=== PATIENT | male | born 1975 | race Caucasian/White ===

== ENCOUNTER 2016-07-07 06:14 | Emergency (ER) | payer BC ==
[~2016-07-07] VITALS: Ht 185.4 cm; Wt 86.1 kg
[~2016-07-07 06:14] MED LIST: IBUP-1050 PO; TRMCR130WC TOP
[2016-07-07 06:18] VITALS: TEMP 36.8; Ht 185.4 cm; Wt 86.1 kg
[2016-07-07] MEDS ORDERED: SODIUM CHLORIDE 0.9% 1000ML 1,000 ML IV STA (06:42)
[2016-07-07 06:57] LABS: BASO % 0.4 %; BASO ABS # 0.02 K/uL (0-0.2); COMPLETE YES; HEMATOCRIT 46.8 % (42-52); IG% 0.2 %; LYMPH % 29.2 %; LYMPH ABS # 1.47 K/uL (1.2-3.4); MEAN CELL VOLUME 85.1 fL (80-100); MEAN CORPUSCULAR HEMOGLOBIN 29.8 pg (25-34); MEAN PLATELET VOLUME 9.5 fL (7.4-10.4); MONO % 4.8 %; NEUT % 62.4 %; PLATELET COUNT 202 K/uL (130-400); WHITE BLOOD COUNT 5.04 K/uL (4.8-10.8)
[2016-07-07] MEDS ORDERED: MECLIZINE HCL 25 MG TAB PO STA (06:58)
[2016-07-07 07:04] LABS: BUN/CREATININE RATIO 14.2 (10-20); CALCIUM 8.8 mg/dl (8.5-10.1); CREATININE 1.1 mg/dl (0.60-1.40)
--- NOTE | 2016-07-07 07:39 | DIAGNOSTIC IMAGING REPORT ---
CT OF THE HEAD WITHOUT CONTRAST CLINICAL HISTORY: Dizziness. COMPARISON STUDY: No previous studies for comparison. CT DOSE: 614.27 mGy.cm TECHNIQUE: Helical axial images of the head were obtained without IV contrast. Automated exposure control was utilized for the study. FINDINGS: No acute intracranial hemorrhage, midline shift or mass effect is present. Ventricular system is normal. The basilar cisterns are patent. No extra-axial collections are present. 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 There are no findings to suggest acute dural sinus thrombosis or acute territorial infarct. There is no significant calvarial abnormality. Visualized portions of the sinuses and mastoid air cells are clear. IMPRESSION: No acute intracranial findings. Electronically signed by: Vinicius Sumner M.D. 07/07/2016 7:38 AM Dictated Date/Time: 07/07/2016 7:32 AM
[2016-07-07 07:51] LABS: URINE APPEARANCE CLEAR (CLEAR); URINE BILIRUBIN NEG (NEG); URINE COLOR YELLOW; URINE NITRITE NEG (NEG); URINE PH 6.5 (4.5-7.5); URINE SPECIFIC GRAVITY 1.011 (1.000-1.030); UROBILINOGEN NEG (NEG); ZZUR CULT IF INDIC CLEAN CATCH NO
[2016-07-07 07:53] LABS: MANUAL MICROSCOPIC REQUIRED? NO; REVIEW REQ? NO
[2016-07-07] MEDS ORDERED: MECL1TAB42 PO (08:58)
[2016-07-07 09:05] VITALS: BP 117/64; PULSE 61; O2SAT 96
--- NOTE | 2016-07-07 15:11 | EMERGENCY ROOM VISIT NOTE ---
History Report prepared by Abner: Ted Damon Under the Supervision of: Dr. Joey Corrigan M.D. First contact with patient: 06:41 Chief Complaint: DIZZY Stated Complaint: DIZZY SPELLS, COLD SWEATS Nursing Triage Summary: Patient c/o dizziness that began this morning. States, "I was fine when I went to bed. I actually fell down a few times." Denies any LOC. History of Present Illness The patient is a 40 year old male who presents to the Emergency Room with complaints of intermittent dizziness since 299 this morning. The patient woke up to the room spinning and cold sweats. The dizziness seems to be exacerbated by postural changes, including standing up and bending over to tie his shoes. At one point the patient fell over when he tried to stand up. The patient has never has these symptoms before. The patient also notes that his tongue has been numb on both sides recently. He denies any one-sided weakness or numbness. He also denies LOC, headache, fevers, chills, diaphoresis, visual changes, neck pain, chest pain, breathing difficulties, nausea, vomiting, abdominal pain, back pain, melena, hematochezia, urinary symptoms, lymphadenopathy, rash, or other complaints. The patient denies having any recent cold symptoms. The patient has not traveled recently. He sees a chiropractor once per month. He denies any medical problems and does not take any daily medications. Source of History: patient Onset: 299 morning Position: other (global) Quality: other (dizziness) Timing: intermittent Modifying Factors (Worsening): other (postural changes) Associated Symptoms: + numbness (tongue, bilateral) Review of Systems See HPI for pertinent positives and negatives. A total of ten systems were reviewed and were otherwise negative. Past Medical & Surgical Medical Problems: (1) Otitis externa Surgical Problems: (1) H/O vasectomy (2) Hx of tonsillectomy (3) [place] teeth extracted Family History Cancer Social History Smoking Status: Never Smoker Alcohol Use: occasionally Marital Status: Housing Status: lives with significant other Occupation Status: employed Current/Historical Medications Scheduled PRN Meclizine Hcl (Meclizine Hcl), 25 MG PO TID PRN for Dizziness Allergies Coded Allergies: Cephalexin (Verified Adverse Reaction, Unknown, nausea, 08/06/15) Physical Exam Vital Signs Date Time Temp Pulse Resp B/P Pulse Ox O2 Delivery O2 Flow Rate FiO2 07/07/16 09:05 61 24 117/64 96 07/07/16 08:00 60 18 140/98 98 Room Air 07/07/16 07:02 66 07/07/16 06:50 62 106/67 100 Room Air 64 112/71 72 127/75 07/07/16 06:18 36.8 59 18 132/69 98 Room Air Physical Exam GENERAL: Awake, alert, well appearing, no distress HENT: Normocephalic, atraumatic. TM's normal. Oropharynx unremarkable. EYES: PERRL. EOMI. Normal conjunctiva. Sclera non-icteric. NECK: Supple. No nuchal rigidity. FROM. No JVD or bruit. RESPIRATORY: CTA CARDIAC: RRR. No murmur. ABDOMEN: Soft, non distended. No tenderness to palpation. No rebound or guarding. No masses. RECTAL: Deferred. MUSCULOSKELETAL: Unremarkable. No edema. No discoloration. Gross motor strength symmetric. NEURO: Cranial nerves 2-12 grossly intact. Normal sensorium. No sensory or motor deficits noted. Gait normal. Speech normal. No pronator drift. Negative rhomberg. Lateral nystagmus. Normal rapid alternating movements. Positive Beau[place]-Hallpike. SKIN: No rash or jaundice noted. LYMPH: No adenopathy. Medical Decision & Procedures ER Provider Diagnostic Interpretation: CT results as stated below per my review and radiologist interpretation CT OF THE HEAD WITHOUT CONTRAST CLINICAL HISTORY: Dizziness. COMPARISON STUDY: No previous studies for comparison. CT DOSE: 614.27 mGy.cm TECHNIQUE: Helical axial images of the head were obtained without IV contrast. Automated exposure control was utilized for the study. FINDINGS: No acute intracranial hemorrhage, midline shift or mass effect is present. Ventricular system is normal. The basilar cisterns are patent. No extra-axial collections are present. 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 There are no findings to suggest acute dural sinus thrombosis or acute territorial infarct. There is no significant calvarial abnormality. Visualized portions of the sinuses and mastoid air cells are clear. IMPRESSION: No acute intracranial findings. Electronically signed by: Vinicius Sumner M.D. 07/07/2016 7:38 AM Laboratory Results 07/07/16 06:36 Red Blood Count 5.50, Mean Corpuscular Volume 85.1, Mean Corpuscular Hemoglobin 29.8, Mean Corpuscular Hemoglobin Concent 35.0, Mean Platelet Volume 9.5, Neutrophils (%) (Auto) 62.4, Lymphocytes (%) (Auto) 29.2, Monocytes (%) (Auto) 4.8, Eosinophils (%) (Auto) 3.0, Basophils (%) (Auto) 0.4, Neutrophils # (Auto) 3.15, Lymphocytes # (Auto) 1.47, Monocytes # (Auto) 0.24, Eosinophils # (Auto) 0.15, Basophils # (Auto) 0.02 07/07/16 06:36 Test 07/07/16 06:36 07/07/16 07:35 White Blood Count 5.04 K/uL (4.8-10.8) Red Blood Count 5.50 M/uL (4.7-6.1) Hemoglobin 16.4 g/dL (14.0-18.0) Hematocrit 46.8 % (42-52) Mean Corpuscular Volume 85.1 fL (80-100) Mean Corpuscular Hemoglobin 29.8 pg (25-34) Mean Corpuscular Hemoglobin Concent 35.0 g/dl (32-36) Platelet Count 202 K/uL (130-400) Mean Platelet Volume 9.5 fL (7.4-10.4) Neutrophils (%) (Auto) 62.4 % Lymphocytes (%) (Auto) 29.2 % Monocytes (%) (Auto) 4.8 % Eosinophils (%) (Auto) 3.0 % Basophils (%) (Auto) 0.4 % Neutrophils # (Auto) 3.15 K/uL (1.4-6.5) Lymphocytes # (Auto) 1.47 K/uL (1.2-3.4) Monocytes # (Auto) 0.24 K/uL (0.11-0.59) Eosinophils # (Auto) 0.15 K/uL (0-0.5) Basophils # (Auto) 0.02 K/uL (0-0.2) RDW Standard Deviation 39.5 fL (36.4-46.3) RDW Coefficient of Variation 12.8 % (11.5-14.5) Immature Granulocyte % (Auto) 0.2 % Immature Granulocyte # (Auto) 0.01 K/uL (0.00-0.02) Anion Gap 8.0 mmol/L (3-11) Est Creatinine Clear Calc Drug Dose 98.8 ml/min Estimated GFR () 95.5 Estimated GFR (Non- 82.4 BUN/Creatinine Ratio 14.2 (10-20) Calcium Level 8.8 mg/dl (8.5-10.1) Total Bilirubin 0.5 mg/dl (0.2-1) Direct Bilirubin 0.1 mg/dl (0-0.2) Aspartate Amino Transf (AST/SGOT) 26 U/L (15-37) Alanine Aminotransferase (ALT/SGPT) 33 U/L (12-78) Alkaline Phosphatase 78 U/L (45-117) Total Protein 7.6 gm/dl (6.4-8.2) Albumin 4.1 gm/dl (3.4-5.0) Lipase 141 U/L (73-393) Urine Color YELLOW Urine Appearance CLEAR (CLEAR) Urine pH 6.5 (4.5-7.5) Urine Specific [place] 1.011 (1.000-1.030) Urine Protein NEG (NEG) Urine Glucose (UA) NEG (NEG) Urine Ketones NEG (NEG) Urine Occult Blood NEG (NEG) Urine Nitrite NEG (NEG) Urine Bilirubin NEG (NEG) Urine Urobilinogen NEG (NEG) Urine Leukocyte Esterase NEG (NEG) Laboratory results reviewed by me Medications Administered Medications (Trade) Dose Ordered Sig/Gabino Route Start Time Stop Time Status Last Admin Dose Admin Sodium Chloride (Nss 1000ml) 1,000 ml @ 125 mls/hr Q8H STAT IV 07/07/16 06:42 07/07/16 10:41 DC 07/07/16 07:07 125 MLS/HR Meclizine HCl (Antivert Tab) 25 mg NOW STAT PO 07/07/16 06:58 07/07/16 07:01 DC 07/07/16 07:09 25 MG ECG Indication: other (dizziness) Rate (beats per minute): 80 Rhythm: normal sinus Findings: no acute ischemic change, no ectopy ED Course 0642: NSS 1000 ml @ 125 mls/hr. 0652: The patient was evaluated in room A9b. A complete history and physical exam was performed. 0658: Meclizine 25 mg PO. 0855: Reassessed the patient. Discussed the findings with him. He verbalized understanding and agreement of the treatment plan. The patient is ready for discharge. Medical Decision Prior records/ancillary studies reviewed. Triage Nursing notes reviewed and agree them. The patient's history was concerning for dizziness. Differential diagnosis: Etiologies such as benign positional vertigo, tumor, infection, hypoglycemia, electrolyte abnormalities, cardiac sources, intracerebral event, toxicologic, neurologic, as well as others were entertained. Physical examination: As above. No pathologic nystagmus. Negative HINTS exam. Positive Hallpike. ER treatment provided: IV hydration over one hour Meclizine On reassessment the patient felt well. His symptoms are essentially resolved. Diagnostics interpretation by me: ECG: Normal sinus rhythm without ischemic change or evidence of dysrhythmia. The labs revealed a normal CBC and chemistry panel. Imaging studies: CT scan as above It appears the patient had an episode of benign -positional vertigo. By the evaluation outlined above emergent etiologies such as infection, hypoglycemia, electrolyte abnormalities, cardiac sources, intracerebral event, toxicologic, neurologic,as well as others were deemed relatively unlikely. The patient and were informed about the findings as listed above. All questions were answered and they were pleased with the treatment. Return instructions were outlined and the patient was discharged in stable condition. Outpatient prescription management: Meclizine Referral: The patient was referred back to his primary care physician for follow-up in 2 to 3 days for a recheck of the current condition. The chart was completed utilizing [employer] Speech voice recognition software. Grammatical errors, random word insertions, pronoun errors, and incomplete sentences are an occasional consequence of this system due to software limitations, ambient noise, and hardware issues. Any formal questions or concerns about the content, text, or information contained within the body of this dictation should be directly addressed to the physician for clarification. Impression Primary Impression: Dizziness Additional Impression: Vertigo Scribe Attestation The scribe's documentation has been prepared under my direction and personally reviewed by me in its entirety. I confirm that the note above accurately reflects all work, treatment, procedures, and medical decision making performed by me. Departure Information Dispostion Home / Self-Care Prescriptions Meclizine Hcl (MECLIZINE HCL) 25 Mg Tab 25 MG PO TID Y for Dizziness, #21 TAB Prov: Joey Corrigan MD 07/07/16 Referrals Roberto Hendrix M.D. (PCP) Forms HOME CARE DOCUMENTATION FORM, IMPORTANT VISIT INFORMATION Patient Instructions My [facility] Additional Instructions DIZZINESS INSTRUCTIONS: DO NOT drive, drink alcohol, operate machinery, or perform dangerous activities today. You were given medications in the ER that can affect your ability to safely function or operate a vehicle. You should not drive or perform any dangerous activities until your symptoms resolve. Meclizine 25mg: Take 1 pill every 8 hours as needed for dizziness or vertigo. Avoid alcohol, operating machinery or dangerous equipment, working on ladders or roofs, DRIVING, or situations where being under the influence may be dangerous Rest and drink plenty of fluids as tolerated. Continue current medications. Return to the ER immediately for worsening or persistent dizziness, vomiting, headache, fevers, chest pains, difficulty breathing, black or bloody stools, slurred speech, numbness, weakness, visual changes, worsening of your condition , or as needed. Follow up with your primary physician in 2-3 days for a recheck of your current condition. Problem Qualifiers
== END 2016-07-07 09:05 | disposition home or self-care (01) ==
LOC: C.EDB 06:14 → C.EDA 09:05
DX: R42 Dizziness and giddiness (principal); Z98.52 Vasectomy status; Z90.89 Acquired absence of other organs; Z98.818 Other dental procedure status; Z80.9 Family history of malignant neoplasm, unspecified

== ENCOUNTER → 2017-03-21 | Outpatient (CLI) | payer BC ==
[2017-03-21 13:14] LABS: CHOLESTEROL/HDL RATIO 2.8; PROSTATE SPECIFIC ANTIGEN 1.35 ng/ml (0.000-4.000); THYROID STIMULATING HORMONE 0.926 uIu/ml (0.300-4.500)
== END | disposition home or self-care (01) ==
LOC: C.LABPBG 08:22
PROVIDERS: ATTEND Neuromusculoskeletal Medicine & OMM
DX: Z00.00 Encounter for general adult medical examination without abnormal findings (principal)

== ENCOUNTER → 2017-06-30 | Outpatient (CLI) | payer BC | END | disposition home or self-care (01) | LOC: C.LABSPEC 16:54 | PROVIDERS: ATTEND Physician Assistant | DX: J02.9 Acute pharyngitis, unspecified (principal) ==

== ENCOUNTER → 2017-07-17 | Outpatient (CLI) | payer BC | END | disposition home or self-care (01) | LOC: C.LABSPEC 13:23 | PROVIDERS: ATTEND Physician Assistant | DX: J34.89 Other specified disorders of nose and nasal sinuses (principal) ==

== ENCOUNTER → 2017-08-25 | Outpatient (CLI) | payer BC ==
--- NOTE | 2017-08-25 16:19 | DIAGNOSTIC IMAGING REPORT ---
R ELBOW 2 VIEWS HISTORY: 41 years-old Male SOFT TISSUE MASS COMPARISON: Right upper extremity ultrasound of same day TECHNIQUE: 2 views of the right elbow FINDINGS: Mild soft tissue swelling about the elbow. No acute fracture or subluxation. There is a moderate sized enthesophyte about the olecranon process. Radial head appears intact. No large joint effusion. IMPRESSION: 1. Mild soft tissue swelling without acute fracture. 2. Moderate sized enthesophyte about the olecranon process. The above report was generated using voice recognition software. It may contain grammatical, syntax or spelling errors. Electronically signed by: Ronnell Garza M.D. 08/25/2017 4:17 PM Dictated Date/Time: 08/25/2017 4:16 PM
--- NOTE | 2017-08-25 16:24 | DIAGNOSTIC IMAGING REPORT ---
R EXTREMITY NONVASCULAR LIMITED CLINICAL HISTORY: M79.9 Soft tissue massright elbow soft tissue [id number] nodules TECHNIQUE: Ultrasound COMPARISON STUDY: None FINDINGS: The regions of palpable nodularity corresponding to well-circumscribed hypoechoic nodules measuring up to 1.0 cm. Additional nodularity is considerably smaller. These are nonspecific. IMPRESSION: Several hypoechoic nodules the soft tissues surrounding the right elbow measuring up to 1 cm. These are nonspecific in etiology The above report was generated using voice recognition software. It may contain grammatical, syntax or spelling errors. Electronically signed by: Brady Jimenez M.D. 08/25/2017 4:22 PM Dictated Date/Time: 08/25/2017 4:21 PM
== END | disposition home or self-care (01) ==
LOC: C.ULTR 15:30
PROVIDERS: ATTEND Surgery
DX: M79.9 Soft tissue disorder, unspecified (principal); M77.8 Other enthesopathies, not elsewhere classified

== ENCOUNTER → 2017-09-27 | Outpatient (CLI) | payer BC ==
[~2017-09-27] MED LIST changes: +GADAVIST IV PRN; -IBUP-1050 PO; -TRMCR130WC TOP
--- NOTE | 2017-09-27 13:34 | DIAGNOSTIC IMAGING REPORT ---
ORBITS FOR MRI HISTORY: 41 years-old Male Z13.89 Encounter for imaging to screen for metal prior to MRI screening study for metallic foreign body. COMPARISON: PET CT 07/07/2016 TECHNIQUE: 3 views of the orbits. FINDINGS: No metallic foreign body of the orbits identified. No acute fracture or dislocation. Paranasal sinuses appear clear. IMPRESSION: No metallic foreign body identified. The above report was generated using voice recognition software. It may contain grammatical, syntax or spelling errors. Electronically signed by: Ronnell Garza M.D. 09/27/2017 1:32 PM Dictated Date/Time: 09/27/2017 1:31 PM
--- NOTE | 2017-09-27 14:55 | DIAGNOSTIC IMAGING REPORT ---
R UPPER EXT JOINT COMBO CLINICAL HISTORY: R22.9 Subcutaneous nodulesright elbow nodules TECHNIQUE: Multi axial MRI acquisition COMPARISON STUDY: Ultrasound right elbow 08/25/2017 FINDINGS: Signal characteristics of the osseous structures are unremarkable. There are several small synovial cysts projecting from the right elbow capsule. These are seen laterally and measure up to 1.5 cm. There are also identified posteriorly measuring up to 8 mm. All major ligamentous and tendinous structures appear to be intact. There is no significant bone marrow replacing process. Signal characteristics the muscular structures are unremarkable. IMPRESSION: 1. Several synovial cysts associated with the elbow joint projecting laterally as well as posteriorly. 2. These cysts apparently account for the clinically palpable nodularity findings. 3. No significant postcontrast enhancement. 4. No significant muscular or tendinous abnormality of the elbow. The above report was generated using voice recognition software. It may contain grammatical, syntax or spelling errors. Electronically signed by: Brady Jimenez M.D. 09/27/2017 2:54 PM Dictated Date/Time: 09/27/2017 2:45 PM
== END | disposition home or self-care (01) ==
LOC: C.MRI 13:03
PROVIDERS: ATTEND Surgery
DX: Z13.89 Encounter for screening for other disorder (principal); M71.321 Other bursal cyst, right elbow